=== PATIENT | female | born 1940 | race Caucasian/White ===

== ENCOUNTER → 2019-01-18 11:36 | Outpatient (CLI) | payer MEDICARE, BC ==
--- NOTE | 2019-01-26 11:18 | ST ---
PATIENT:JACIEL BORGES MEDICAL RECORD: [id number] SEX: F LOCATION:[facility] ORDER #: ADMISSION DATE: 01/18/19 AGE OF PATIENT: 78 REFERRING PHYSICIAN: INTERPRETING PHYSICIAN: OMEGA WILSON MD DATE OF SERVICE: 01/18/2019 PROCEDURE: Nuclear stress test. INDICATION: Angina, abnormal ECG, hypertension, shortness of breath. She was exercised on standard Lexiscan protocol with 32 mCi of sestamibi injected at peak stress, 10 mCi was used previously for rest images. FINDINGS: Gated SPECT reveals preserved ejection fraction at 76% with good wall motion and thickening and brightening throughout all segments. SPECT imaging Cardiolite was used as myocardial fusion agent. There is homogeneous uptake throughout all segments at rest and stress with no evidence of inducible ischemia or previous infarction. OVERALL IMPRESSION: 1. This is a normal nuclear stress test with no evidence of inducible ischemia or previous infarction. 2. Gated SPECT reveals a preserved ejection fraction at 76%. In this patient with ongoing symptomatology, the current scan does not suggest the presence of hemodynamically significant coronary artery disease. Evaluate noncardiac etiology of chest pain. TRANSINT:[id number] Voice Confirmation ID: [id number] DOCUMENT ID: [id number] OMEGA WILSON MD at 1118 CC: [id number] DICTATION DATE: 01/19/19 1158 OPERATIONS PLANT ATTENDANT: 01/20/19 0315 DEP CLI 01/18/19 [id number] [place] [address]
== END | disposition home or self-care (01) ==
LOC: D.HCCARDIO 11:36
DX: I20.9 Angina pectoris, unspecified (principal)

== ENCOUNTER 2021-05-02 06:36 | Day surgery (SDC) | payer MEDICARE, BC ==
[~2021-05-02] VITALS: Ht 160 cm; Wt 59.4 kg
--- NOTE | ~2021-05-02 | HEMODYNAMI ---
PATIENT:JACIEL BORGES MEDICAL RECORD: [id number] : 42 LOCATION:[facility] ADMISSION DATE: 05/02/21 Generatedon:18:37 Patient name: JACIEL BORGSE Patient #: [id number] SSN: : Date of study: 05/02/2021 Page: Of Hemodynamic Procedure Report Patient Data Patient Demographics Procedure consent was obtained First Name: JACIEL Gender: Female Last Name: KATERINA : 1940 Middle Initial: JACKI Age: 80 year(s) Patient #: [id number] Race: Unknown Additional ID: [id number] Contact details [address]: [address] [place] [address] State: [place] City: [place] Zip code: [address] Past Medical History Performed procedures and imaging results Date Procedure Procedure Results Comments Stress testing with Negative SPECT MPI Allergies: No known allergies Admission Admission Data Admission Date: 05/02/2021 Admission Time: 6:36 Arrival Date: 05/02/2021 Arrival Time: 0:00 Height (in.): 61 BSA: 1.57 (m2) Height (cm.): 154.94 BMI: 24.58 (kg/m2) Weight (lbs.): 130.07 Weight (kg.): 59 Procedure Procedure Types Cath Procedure Diagnostic Procedure [facility] w[facility] Procedure Description Procedure Date Procedure Date: 05/02/2021 Procedure Start Time: 8:24 Procedure End Time: 8:34 Procedure Staff Name Function Mik Simeon MD Performing Physician Daryl Mckeon RN Nurse Vinay Rodriguez RT Scrub Emily Murrell RT Monitor Procedure Data Cath Procedure Fluoroscopy Diagnostic fluoroscopy Total fluoroscopy Time: 1 time: 1 min min Diagnostic fluoroscopy Total fluoroscopy dose: 183 dose: 183 mGy mGy Contrast Material Contrast Material Type Amount (ml) Isovue 300 43 Entry Location Entry Primary Successful Side Size Upsize Upsize Entry Closure Succes sful Closure Location (Fr) 1 (Fr) 2 (Fr) Remarks Device Remarks Femoral Right 5 Fr Exoseal artery Estimated blood loss: 5 ml Diagnostic catheters Device Type Used For End Catheter Placement MULTIPACK JL 4.0 5Fr Procedure catheter MULTIPACK 3DRC 5Fr Procedure catheter MULTIPACK Pigtail 5 Fr Procedure catheter Procedure Complications No complications Procedure Medications Medication Administration Route Dosage 0.9% NaCl I.V. 100 ml/hr Oxygen etCO2 Nasal cannula 2 l/min Heparin Flush Bag added to field 2 bags (1000units/500ml NS) Lidocaine 2% added to field 20 Oxygen NRB 6 l/min Versed I.V. 1 mg Fentanyl I.V. 50 mcg Hemodynamics Rest BSA: 1.57 (m2) O2 Consumption: Estimated: 126.07 (ml/min) O2 Consumption indexed : Estimated:80.3 (ml/min/m) Heart Rate: 44 (bpm) Pressure Samples Time Site Value (mmHg) Purpose Heart Use Rate(bpm) 8:29 LV 185/16,28 Snapshot 70 8:29 LV 183/17,22 Snapshot 67 Gradients Valve Time Site Site Mean SEP/DFP Peak To Heart Use 1 2 (mmHg) (sec/min) Peak Rate (mmHg) (bpm) Aortic 8:29 LV AO 70 Snapshots Pre Cath Intra NCS Post Cath Vital Signs Time Heart Resp SPO2 etCO2 NIBP (mmHg) Rhythm Pain Sedation Rate (ipm) (%) (mmHg) Status Level (bpm) 8:05:29 67 23 19.4 185/77(137) NSR 0 (11) 10(A) , No pain 8:10:01 68 29 90 32.2 154/68(127) NSR 0 (11) 10(A) , No pain 8:14:21 66 21 98 2.2 145/70(108) NSR 0 (11) 10(A) , No pain 8:18:38 66 14 99 3.7 156/73(109) NSR 0 (11) 10(A) , No pain 8:23:00 66 15 100 27.7 157/68(104) NSR 0 (11) 10(A) , No pain 8:27:21 65 41 100 23.9 164/73(108) NSR 0 (11) 9(A) , No pain 8:31:43 68 31 100 27.6 164/76(99) NSR 0 (11) 10(A) , No pain 8:36:05 69 25 0 171/74(119) NSR 0 (11) 10(A) , No pain Medications Time Medication Route Dose Verified Delivered Reason Notes Effe ctiveness by by 8:04:30 0.9% NaCl I.V. 100 Mik Daryl used for ml/hr St Aren Mckeon RN procedure 8:04:38 Oxygen etCO2 2 Mik Daryl used for Nasal l/min [facility] Aren Mckeon RN procedure cannula 8:04:48 Heparin Flush added 2 Mik Mik used for Bag to bags [facility] procedure (1000units/500ml field MD CRANE NS) 8:04:58 Lidocaine 2% added 20ml Mik Houser for local to vial [facility] anesthetic field MD CRANE 8:15:45 Oxygen NRB 6 Mik Mik used for l/min [facility] John procedure MD CRANE 8:23:28 Versed I.V. 1 mg [address]o for [facility] Aren Mckeon RN sedation 8:23:34 Fentanyl I.V. 50 Mik Rehmany for mcg [facility] Aren Mckeon RN sedation Procedure Log Time Note 7:53:14 Informed consent obtained and on chart 7:53:49 Procedure Status Elective Heart Cath (OP). 7:53:59 Daryl Mckeon RN sent for patient. Start room use. 7:54:00 Time tracking: Regular hours (M-F 7:00 - 5:00) 7:54:03 Plan of Care:Hemodynamics will remain stable., Cardiac rhythm will remain stable., Comfort level will be maintained., Respiratory function will remain adequate., Patient/ family verbilizes understanding of procedure., Procedure tolerated without complication., Recovers from procedure without complications.. 7:54:25 H&P Date Dictated: 04/18/2021 Within 30 days and on chart., H&P Addendum completed by physician on day of procedure. (MUST COMPLETE FOR ALL OUTPATIENTS). 7:54:33 Patient allergic to No known allergies 7:57:38 Patient Weight : 130.07 lbs 7:57:48 Patient Height : 61 inches 7:57:51 Arrival Date: 05/02/2021 12:00:00 AM 8:04:15 Vital chart was started 8:04:23 Patient received from Pre/Post Procedure Room to CCL 1 Alert and oriented. Tansferred to table in Supine position. 8:04:24 Warm blankets applied, and sana hugger turned on for patient comfort. 8:04:24 Correct patient and procedure confirmed by team. 8:04:25 ECG and BP/O2 sat monitors applied to patient. 8:04:28 Full Disclosure recording started 8:04:30 0.9% NaCl 100 ml/hr I.V. was administered by Daryl Mckeon RN; used for procedure; Verbal order read back and verified. 8:04:30 Pre-procedure instructions explained to patient. 8:04:30 Pre-op teaching completed and patient verbalized understanding. 8:04:31 Family in patients room. 8:04:32 Patient NPO since Midnight. 8:04:34 Is the patient allergic to Iodine/contrast media? No. 8:04:36 Is patient on blood thinner?No 8:04:38 Oxygen 2 l/min etCO2 Nasal cannula was administered by Daryl Mckeon RN; used for procedure; Verbal order read back and verified. 8:04:38 Patient diabetic? No. 8:04:40 Patient not . Patient is over age 55. 8:04:42 Previous problem with sedation/anesthesia? No ? 8:04:42 Snore? Yes 8:04:43 Sleep apnea? No 8:04:44 Deviated septum? No 8:04:45 Opens mouth fully? Yes 8:04:46 Sticks out tongue? Yes 8:04:48 Heparin Flush Bag (1000units/500ml NS) 2 bags added to field was administered by Mik Simeon MD; used for procedure; Verbal order read back and verified. 8:04:48 Airway obstruction? No ? 8:04:51 Dentures? No OUT 8:04:54 Pre procedure: right dorsailis pedis pulse 1+ Palpable, but thready & weak; easily obliterated 8:04:57 Baseline sample Acquired. 8:04:58 Lidocaine 2% 20ml vial added to field was administered by Mik Simeon MD; for local anesthetic; Verbal order read back and verified. 8:05:03 Rhythm: sinus rhythm 8:05:11 IV patent on arrival in left hand with 0.9% NaCl at KVO. 8:15:27 Lab results completed and on chart. 8:15:30 PT. CHEMISTRY LABS ARE NOT BACK YET. OKAY PER DR. SIMEON TO CONTINUE WITH PROCEDURE 8:15:45 Oxygen 6 l/min NRB was administered by Mik Siemon MD; used for procedure; Verbal order read back and verified. 8:16:12 Zero performed for pressure channel P1 8:16:21 Stress Test: yes; normal ? 8:16:25 Right groin area was prepped with chlora-prep and draped in sterile fashion 8:16:26 Alarms reviewed by R. N. 8:16:26 Sharps counted by scrub and verified by R.N. 8:16:28 Use device set Femoral Dx 8:16:29 ACIST Syringe (87812) opened to sterile field. 8:16:30 Bag Decanter (2002S) opened to sterile field. 8:16:31 ACIST Hand Control (46316) opened to sterile field. 8:16:35 ACIST Manifold (44413) opened to sterile field. 8:16:36 Tegaderm 4 x 4 (1626W) opened to sterile field. 8:16:38 Medline Cath Pack ([id number]) opened to sterile field. 8:16:42 DIAGNOSTIC Multipack 5Fr catheter set (ZZ3938) opened to sterile field. 8:16:46 SHEATH 5FR [place]iqua (UWC121) opened to sterile field. 8:16:47 EMERALD Guide Wire (772-906) opened to sterile field. 8:23:15 --------ALL STOP TIME OUT------ 8:23:15 Final Timeout: patient, procedure, and site verified with staff and physician. All members of the team are in agreement. 8:23:17 Right groin site verified by team. 8:23:20 Fire Safety Assessment: A--An alcohol-based skin anteseptic being used preoperatively., C--Open oxygen or nitrous oxide is being used., D--An ESU, laser, or fiber-optic light is being used. 8:23:24 Physical assessment completed. ASA score P 2 - A patient with mild systemic disease as per Mik Simeon MD. 8:23:28 Versed 1 mg I.V. was administered by Daryl Mckeon RN; for sedation; Verbal order read back and verified. 8:23:34 Fentanyl 50 mcg I.V. was administered by Daryl Mckeon RN; for sedation; Verbal order read back and verified. 8:23:38 Sedation plan: IV Moderate Sedation Medication:Versed, Fentanyl 8:24:25 Procedure started. 8:24:42 Local anesthetic to right femoral artery with Lidocaine 2% by Mik Simeon MD.INITIAL ACCESS ONLY 8:25:15 A 5 Fr sheath was inserted into the Right Femoral artery 8:25:59 A MULTIPACK JL 4.0 5Fr catheter was advanced over the wire and used for Procedure. 8:27:32 LCA angiography performed. 8:27:33 Catheter removed. 8:27:39 A MULTIPACK 3DRC 5Fr catheter was advanced over the wire and used for Procedure. 8:28:29 RCA angiography performed. 8:28:31 Catheter removed. 8:28:40 A MULTIPACK Pigtail 5 Fr catheter was advanced over the wire and used for Procedure. 8:29:12 LV gram done using MAST 8:29:14 Injector settings: Ml/sec: 10, Volume: 20, 8:29:36 LV hemodynamics recorded. 8:29:45 EF : 55 % 8:29:47 Catheter removed. 8:29:50 EXOSEAL 5Fr (EX500) opened to sterile field. 8:30:31 Sheath removed intact; hemostasis achieved with Exoseal to the Right Femoral artery. 8:30:44 Procedure ended.(Physican Out) 8:31:01 Fluoroscopy time 01.00 minutes. 8:31:05 Flurop Dose total: 183 8:31:05 Fluoroscopy dose: 183 mGy 8:31:16 Dose Area Product 95534 mGy/cm. 8:31:19 Sharps counted by scrub and verified by R.N. 8:31:22 Post-op/insertion site Right Femoral artery dressed using a 4 x 4 and Tegaderm. 8:31:24 Post-procedure physical assessment completed. ASA score P 3 - A patient with severe systemic disease as per Mik Simeon MD. 8:31:27 Post procedure rhythm: sinus rhythm 8:31:29 Estimated blood loss: 5 ml 8:32:03 Contrast amount:Isovue 300 43ml. 8:32:24 Post procedure instruction explained to patient.Patient verbalizes understanding. 8:32:24 Patient needs reinforcement of post procedure teaching. 8:32:35 Procedure and supply charges have been captured, reviewed, submitted and are correct. 8:32:38 Procedure Complication : No complications 8:32:40 [facility] Findings: mild to moderate CAD (<70%) 8:32:42 Operative report dictated upon procedure completion. 8:32:42 See physician's report for complete and final results. 8:34:24 Report given to Pre/Post Procedure Room. 8:34:26 Patient transfered to Pre/Post Procedure Room with Bed. 8:34:28 Procedure ended. 8:34:28 Full Disclosure recording stopped 8:34:36 End room use (Document Last) 8:36:42 Procedure ended.(Physican Out) 8:37:02 Vital chart was stopped Device Usage Item Name Manufacture Quantity Catalog Hospital Part Current Minimal L ot# / Number Charge Number Stock Stock Serial# Code ACIST Acist 1 48091 049570 530346 800784 20 Syringe Medical (15265) Systems Inc Bag Microtek 1 2001S 205385 23505 447069 5 Decanter Medical Inc. () ACIST Hand Acist 1 23399 871639 929629 511966 5 Control Medical (76545) Systems Inc ACIST Acist 1 76470 373001 675709 746946 5 Manifold Medical (76260) Systems Inc Tegaderm 4 3M 1 1626W 658829 619785 859393 5 x 4 (1626W) Medline Medline 1 [id number] 215356 80245 325809 5 Cath Pack ([id number]) DIAGNOSTIC Cardinal 1 KE9657 394558 86683 679339 30 Multipack Health 5Fr catheter set (ZX0387) SHEATH 5FR Terumo 1 HLQ209 177268 485305 744493 5 Piqua (DCV826) EMERALD Cardinal 1 502-455 371788 907246 098154 5 Guide Wire Health (502-455) MULTIPACK Cardinal 1 528092 5 JL 4.0 5Fr Health catheter MULTIPACK Cardinal 1 128277 5 3DRC 5Fr Health catheter MULTIPACK Cardinal 1 983459 5 Pigtail 5 Health Fr catheter EXOSEAL 5Fr Cardinal 1 EX500 096804 207189 619284 10 (EX500) Health Signature Audit [place] Stage Time Signature Unsigned Intra-Procedure 05/02/2021 Emily Murrell 8:36:09 AM RT(R) Intra-Procedure 05/02/2021 Daryl Mckeon RN 8:36:42 AM Intra-Procedure 05/02/2021 Mik Caballero 8:37:01 AM Aren CRANE [facility] [address] [facility] [place] [address]
[2021-05-02] MEDS ORDERED: METOPROLOL TART50 MG PO (07:05)
[2021-05-02] MEDS ORDERED: PROTONIX40 MG PO (07:05)
[2021-05-02] MEDS ORDERED: COZAAR50 MG PO (07:05)
[2021-05-02] MEDS ORDERED: HYDROXYCHLOROQ200 MG PO (07:06)
[2021-05-02] MEDS ORDERED: HCTZ25 MG PO (07:07)
[2021-05-02] MEDS ORDERED: ULTRAM50 MG PO (07:07)
[2021-05-02] MEDS ORDERED: FISH OIL 1,0001 CA1 PO (07:08)
[2021-05-02] MEDS ORDERED: MULTI-DAY VITAM1 TAB PO (07:08)
[2021-05-02] MEDS ORDERED: PROBIOTIC1 EAC1 PO (07:08)
[2021-05-02] MEDS ORDERED: MERIBIN5 MG PO (07:09)
[2021-05-02 07:31] VITALS: BP 167/74; Ht 160 cm; Wt 59.4 kg
[2021-05-02 07:50] LABS: BASOPHILS 0.9 % (0-2); EOSINOPHILS 3.6 % (0-7); HEMATOCRIT 32.5 % (36.0-48.0); LYMPHOCYTES 28.5 % (15-50); MCH 33.4 pg (26.0-34.0); MCHC 33.7 g/dL (31.0-37.0); MCV 99.3 fL (80.0-100.0); MEAN PLATELET VOLUME 10.1 fL (7.4-10.4); MONOCYTES 12.1 % (2-11); NEUTROPHILS 54.9 % (40-80); PLATELET COUNT 225 10x3/uL (130-400); RBC 3.28 10x6/uL (4.00-5.40); RDW 13.4 % (11.5-14.5); WBC 6.4 10x3/uL (4.8-10.8)
--- NOTE | 2021-05-02 08:40 | NUR ---
REC'D PT TO CATH RECOVERY ROOM 12. MONITORING EQUIPMENT APPLIED. ASSESSMENT COMPLETE, R GROIN SOFT WITH NO S/S OF HEMATOMA. PEDAL PULSES PRESENT. NO FAMILY AT BEDSIDE AT THIS TIME. CALL LIGHT WITHIN PT REACH.
--- NOTE | 2021-05-02 08:54 | NUR ---
REC'D TO CATH RECOVERY ROOM 12. MONITORING EQUIPMENT ATTACHED. ASSESSMENT COMPLETE, R GROIN SOFT WITH NO S/S OF HEMATOMA. PEDAL PULSES PRESENT. NO FAMILY AT BEDSIDE AT THIS TIME. CALL LIGHT WITHIN PT REACH.
--- NOTE | 2021-05-02 08:55 | NUR ---
R GROIN SOFT WITH NO S/S OF HEMATOMA. PEDAL PULSES PRESENT. DAUGHTER AT BEDSIDE. NO COMPLAINTS AT THIS TIME. CALL LIGHT WITHIN PT REACH.
[2021-05-02 09:08] LABS: ANION GAP 16.8 mmol/L (8-16); CALCIUM 7.7 mg/dL (8.5-10.1); CARBON DIOXIDE 22.8 mmol/L (21.0-32.0); CREATININE - SERUM 1.4 mg/dL (0.6-1.3); LDL-HDL RATIO 0.9 ratio (1.5-3.5); POTASSIUM - SERUM 3.6 mmol/L (3.5-5.1)
--- NOTE | 2021-05-02 09:10 | NUR ---
R GROIN SOFT WITH NO S/S OF HEMATOMA. PEDAL PUSLES PRESENT. PT MAINTAINS STRAIGHT R LEG AND HEAD FLAT ON PILLOW. NO COMPLAINTS. DAUGHTER AT BEDSIDE, CALL LIGHT WITHIN PT REACH.
--- NOTE | 2021-05-02 09:25 | NUR ---
R GROIN SOFT WITH NO S/S OF HEMATOMA PEDAL PULSES PRESENT. NO COMPLAINTS. DAUGHTER AT BEDSIDE, CALL LIGHT WITHIN PT REACH.
--- NOTE | 2021-05-02 09:38 | NUR ---
DR. DEGROOT AT BEDSIDE, UPDATE PROVIDED TO PT AND FAMILY.
--- NOTE | 2021-05-02 09:45 | NUR ---
PT AOX4, HOB AT 30 DEGREES. R GROIN SOFT WITH NO S/S OF HEMATOMA. PEDAL PUSLSES PRESENT. SANDWICH TRAY PROVIDED. NO COMPLAINTS AT THIS TIME. DAUGHTER AT BEDSIDE, CALL LIGHT WITHIN PT REACH.
--- NOTE | 2021-05-02 10:15 | NUR ---
ALL DISCHARGE INSTRUCTIONS PROVIDED, PT AND FAMILY VERBALIZE UNDERSTANDING. PIV D/C'D CATH TIP INTACT. PT ALLOWED TO GET DRESSED INDEPENDENTLY.
--- NOTE | 2021-05-02 10:40 | NUR ---
PT TO BATHROOM INDEPENDENTLY. DISCHARGED VIA WHEELCHAIR TO PRIVATE VEHICLE. ALL BELONGINGS AND PAPERWORK WITH PT
--- NOTE | 2021-05-02 14:28 | OP ---
PATIENT NAME: JACIEL BOGRES MEDICAL RECORD: [id number] :42 LOCATION:D.[facility] ADMISSION DATE: SURGEON: DAYDAY DEGROOT MD DATE OF OPERATION: 05/02/2021 PROCEDURE PERFORMED: Left heart cath, selective coronary angiography, right femoral artery approach. CATHETERS: A 5-Pashto sheath, 5/4 left and right Yenni, 5/4 pig. The procedure was well tolerated, the patient returned to the meehan, sheath removed, ExoSeal device placed. FINDINGS: Left ventriculography in 30-degree MAST view: Normal wall motion, normal systolic function. CORONARY ANATOMY: Left main: Left main is free of disease. LAD: Free of disease. Circumflex: Free of disease in the marginal system. Right coronary artery: Dominant artery, gives rise to PDA, free of disease. IMPRESSION: Normal LV systolic function, normal coronary anatomy. TRANSINT:[id number] Voice Confirmation ID: [id number] DOCUMENT ID: [id number] DAYDAY DEGROOT MD at 1428 CC: [id number] DICTATION DATE: 05/02/21 0834 PART TIME FLEXIBLE CLERK: 05/02/21 1031 [facility] 05/02/21 [facility] [address] [place] [address]
== END 2021-05-02 10:40 | disposition home or self-care (01) ==
LOC: D.CATH 06:36
PROVIDERS: ATTEND Internal Medicine Interventional Cardiology
DX: I20.9 Angina pectoris, unspecified (principal); I10 Essential (primary) hypertension; E78.5 Hyperlipidemia, unspecified